=== PATIENT | female | born 1990 | race Caucasian/White ===

== ENCOUNTER 2016-10-05 17:12 | Emergency (ER) | payer OTHER ==
[2016-10-05 17:55] LABS: HEMOGLOBIN 13.5 gm/dl (12.3-15.3); RED BLOOD COUNT 4.17 M/UL (4.00-5.10); WHITE BLOOD COUNT 10.2 K/UL (4.5-11.0)
[2016-10-05 18:13] LABS: BUN/CREATININE RATIO 20 (0-10)
== END 2016-10-05 19:25 | disposition home or self-care (01) ==
LOC: ER1 17:12
PROVIDERS: Physician Assistant Medical
DX: O99.89 Other specified diseases and conditions complicating pregnancy, childbirth and the puerperium (principal); R11.0 Nausea; R10.31 Right lower quadrant pain; Z88.0 Allergy status to penicillin
CPT/HCPCS: 36415; 76830; 80053; 81001; 84702; 84703; 85025; 87086; 99284

== ENCOUNTER → 2016-10-08 | Outpatient (CLI) | payer OTHER | LOC: LAB 10:06 | DX: O26.859 Spotting complicating pregnancy, unspecified trimester (principal) | CPT/HCPCS: 36415; 84702 ==

== ENCOUNTER 2016-10-22 23:30 | Emergency (ER) | payer OTHER ==
[2016-10-23 04:46] LABS: HEMOGLOBIN 11.2 gm/dl (12.3-15.3); RED BLOOD COUNT 3.48 M/UL (4.00-5.10); WHITE BLOOD COUNT 10.1 K/UL (4.5-11.0)
[2016-10-23 05:06] LABS: BUN/CREATININE RATIO 22 (0-10)
== END 2016-10-23 07:45 | disposition home or self-care (01) ==
LOC: ER1 23:30
PROVIDERS: Physician Assistant
DX: O20.0 Threatened abortion (principal); O23.41 Unspecified infection of urinary tract in pregnancy, first trimester; Z88.0 Allergy status to penicillin; Z88.1 Allergy status to other antibiotic agents; Z3A.08 8 weeks gestation of pregnancy
CPT/HCPCS: 36415; 80053; 81001; 83690; 84702; 84703; 85025; 86900; 86901; 87086; 87210; 96361; 96365; 96375; 99284; J0696; J2765; J7050

== ENCOUNTER 2017-03-24 01:41 | Outpatient (CLI) | payer OTHER | END 2017-03-24 03:50 | disposition home or self-care (01) | LOC: GENOP 01:41 | DX: O99.89 Other specified diseases and conditions complicating pregnancy, childbirth and the puerperium (principal); Z3A.30 30 weeks gestation of pregnancy; R10.9 Unspecified abdominal pain | CPT/HCPCS: 81001; G0463 ==

== ENCOUNTER 2020-11-23 12:42 | Emergency (ER) | payer OTHER ==
[~2020-11-23 12:42] MED LIST: COLACE 100MG C100 MG PO
== END 2020-11-23 14:51 | disposition home or self-care (01) ==
LOC: ER1 12:42
DX: S63.616A Unspecified sprain of right little finger, initial encounter (principal); S60.221A Contusion of right hand, initial encounter; W22.8XXA Striking against or struck by other objects, initial encounter
CPT/HCPCS: 29130; 73130; 99283

== ENCOUNTER 2020-11-27 01:24 | Emergency (ER) | payer OTHER ==
[2020-11-27] MEDS ORDERED: VISTARIL25 MG PO (01:39)
== END 2020-11-27 01:45 | disposition home or self-care (01) ==
LOC: ER1 01:24
DX: F41.9 Anxiety disorder, unspecified (principal); Z88.0 Allergy status to penicillin; Z88.1 Allergy status to other antibiotic agents; Z91.040 Latex allergy status
CPT/HCPCS: 99283; Q0177

== ENCOUNTER 2020-11-29 20:32 | Emergency (ER) | payer OTHER ==
[~2020-11-29 20:32] MED LIST changes: +VISTARIL25 MG PO
== END 2020-11-29 23:15 | disposition home or self-care (01) ==
LOC: ER1 20:32
DX: Z46.89 Encounter for fitting and adjustment of other specified devices (principal); Z88.0 Allergy status to penicillin; Z91.040 Latex allergy status
CPT/HCPCS: 99282

== ENCOUNTER 2020-12-07 04:08 | Emergency (ER) | payer OTHER ==
[2020-12-07 05:00] LABS: HEMOGLOBIN 13.9 gm/dl (12.3-15.3); RED BLOOD COUNT 4.26 M/UL (4.00-5.10); WHITE BLOOD COUNT 6.9 K/UL (4.5-11.0)
[2020-12-07 05:24] LABS: BUN/CREATININE RATIO 21 (0-10)
[2020-12-07 08:36] LABS: BUN/CREATININE RATIO 15 (0-10)
[2020-12-08] MEDS ORDERED: ZITHROMAX500 MG PO (22:16)
== END 2020-12-07 09:03 | disposition home or self-care (01) ==
LOC: ER1 04:08
PROVIDERS: Family Medicine
DX: F10.129 Alcohol abuse with intoxication, unspecified (principal); E86.0 Dehydration; I95.1 Orthostatic hypotension; R56.9 Unspecified convulsions; Z88.0 Allergy status to penicillin; Z91.040 Latex allergy status
CPT/HCPCS: 70450; 80048; 80053; 80307; 81001; 82550; 82553; 83874; 84484; 84702; 85025; 93005; 96374; 99285; G0480; J2060; J2405; J7030

== ENCOUNTER 2020-12-08 20:26 | Emergency (ER) | payer OTHER ==
[2020-12-08] MEDS ORDERED: ZITHROMAX500 MG PO (22:16)
== END 2020-12-08 22:25 | disposition home or self-care (01) ==
LOC: ER1 20:26
DX: J02.0 Streptococcal pharyngitis (principal); Z88.0 Allergy status to penicillin; Z20.822 Contact with and (suspected) exposure to COVID-19
CPT/HCPCS: 0240U; 87081; 87880; 99283

== ENCOUNTER 2021-05-31 21:39 | Emergency (ER) | payer OTHER ==
[~2021-05-31 21:39] MED LIST changes: +ZITHROMAX500 MG PO
[2021-05-31 23:11] LABS: HEMOGLOBIN 12.7 gm/dl (12.3-15.3); RED BLOOD COUNT 3.92 M/UL (4.00-5.10); WHITE BLOOD COUNT 7.5 K/UL (4.5-11.0)
[2021-05-31 23:32] LABS: BUN/CREATININE RATIO 22 (0-10)
[2021-06-01] MEDS ORDERED: BENTYL 20MG TAB20 MG PO (02:11)
[2021-06-01] MEDS ORDERED: ZOFRAN ODT 4 MG4 MG PO (02:11)
== END 2021-06-01 02:18 | disposition home or self-care (01) ==
LOC: ER1 21:39
PROVIDERS: Physician Assistant
DX: N93.9 Abnormal uterine and vaginal bleeding, unspecified (principal); R11.0 Nausea; Z87.442 Personal history of urinary calculi; Z88.0 Allergy status to penicillin
CPT/HCPCS: 80053; 81001; 83690; 84703; 85025; 99284; Q9967

== ENCOUNTER 2021-08-31 12:33 | Emergency (ER) | payer OTHER ==
[~2021-08-31 12:33] MED LIST changes: +BENTYL 20MG TAB20 MG PO; +ZOFRAN ODT 4 MG4 MG PO
[2021-08-31 13:33] LABS: RED BLOOD COUNT 3.83 M/UL (4.00-5.10); WHITE BLOOD COUNT 4.1 K/UL (4.5-11.0)
[2021-08-31 13:50] LABS: BUN/CREATININE RATIO 22 (0-10)
== END 2021-08-31 14:55 | disposition home or self-care (01) ==
LOC: ER1 12:33
PROVIDERS: Physician Assistant
DX: R10.9 Unspecified abdominal pain (principal); Z88.0 Allergy status to penicillin; Z91.040 Latex allergy status
CPT/HCPCS: 80053; 81001; 84703; 85025; 96372; 99283; J1885

== ENCOUNTER 2021-10-01 23:36 | Emergency (ER) | payer OTHER ==
[2021-10-02 00:31] LABS: HEMOGLOBIN 13.4 gm/dl (12.3-15.3); RED BLOOD COUNT 4.22 M/UL (4.00-5.10)
[2021-10-02 00:50] LABS: BUN/CREATININE RATIO 23 (0-10)
[2021-10-02] MEDS ORDERED: ZOFRAN ODT 4 MG4 MG PO (02:23)
[2021-10-02] MEDS ORDERED: BENTYL 20MG TAB20 MG PO (02:23)
== END 2021-10-02 02:36 | disposition home or self-care (01) ==
LOC: ER1 23:36
PROVIDERS: Family Medicine
DX: R10.9 Unspecified abdominal pain (principal); R11.0 Nausea; R19.7 Diarrhea, unspecified; Z20.822 Contact with and (suspected) exposure to COVID-19; Z88.0 Allergy status to penicillin
CPT/HCPCS: 0240U; 80053; 81001; 83690; 84703; 85025; 87086; 96374; 99284; Q9967

== ENCOUNTER 2021-10-04 15:22 | Emergency (ER) | payer OTHER ==
[2021-10-04 16:03] LABS: RED BLOOD COUNT 4.16 M/UL (4.00-5.10); WHITE BLOOD COUNT 4.6 K/UL (4.5-11.0)
[2021-10-04 16:15] LABS: BUN/CREATININE RATIO 19 (0-10)
[2021-10-04] MEDS ORDERED: IMODIUM CAP 2 MG2 MG PO (19:09)
[2021-10-04] MEDS ORDERED: PROTONIX40 MG PO (19:09)
[2021-10-04 19:14] LABS: ADENOVIRUS F 40/41 Not Detected (Negative); ASTROVIRUS Not Detected (Negative); CAMPYLOBACTER Not Detected (Negative); CRYPTOSPORIDIUM Not Detected (Negative); E.COLI 0157 Not Detected (Negative); ENTAMOEBA HISTOLYTICA Not Detected (Negative); ENTEROAGGREGATIVE E.COLI (EAEC Not Detected (Negative); ENTEROPATHOGENIC E.COLI (EPEC) Not Detected (Negative); ENTEROTOXIGENIC E.COLI (ETEC) Not Detected (Negative); GIARDIA LAMBLIA Not Detected (Negative); NOROVIRUS GI/GII Not Detected (Negative); PLESIOMONAS SHIGELLOIDES Not Detected (Negative); SALMONELLA Not Detected (Negative); SAPOVIRUS Not Detected (Negative); SHIG/ENTEROINVAS.ECOLI (EIEC) Not Detected (Negative); SHIGA-LIK TOX.PRO.E.COLI (STEC Not Detected (Negative); VIBRIO Not Detected (Negative); VIBRIO CHOLERAE Not Detected (Negative); YERSINIA ENTEROCOLITICA Not Detected (Negative)
[2021-10-05 07:57] LABS: CLOSTRIDIUM DIFFICILE TOX A/B Not Detected (Negative); ROTOVIRUS A DETECTED (Negative)
[2021-10-06 11:15] LABS: HBSAG SCREEN Negative (Negative); HEP A AB, IGM Negative (Negative); HEP B CORE AB, IGM Negative (Negative); HEP C VIRUS AB <0.1 (0.0-0.9)
== END 2021-10-04 19:50 | disposition home or self-care (01) ==
LOC: ER1 15:22
PROVIDERS: Physician Assistant
DX: R10.12 Left upper quadrant pain (principal); R19.7 Diarrhea, unspecified; Z91.040 Latex allergy status; Z88.0 Allergy status to penicillin
CPT/HCPCS: 80053; 80074; 81001; 83690; 84703; 85025; 87507; 96374; 96375; 99284; C9113; J1170; J1885; J2405

== ENCOUNTER → 2021-12-03 | Outpatient (CLI) | payer OTHER ==
[~2021-12-03] MED LIST changes: +IMODIUM CAP 2 MG2 MG PO; +PROTONIX40 MG PO
== END ==
LOC: KOH-I 12-01 10:00
DX: R31.9 Hematuria, unspecified (principal); N20.0 Calculus of kidney; N83.202 Unspecified ovarian cyst, left side
CPT/HCPCS: 74176